=== PATIENT | female | born 1950 | race Caucasian/White ===

== ENCOUNTER 2024-05-20 09:29 | Emergency (ER) | payer MEDICARE, OTHER, SELFPAY ==
[2024-05-20 09:33] VITALS: BP 123/82
--- NOTE | 2024-05-20 10:28 | ED.GENMED ---
History of Present Illness
General
Chief Complaint: Nose Bleed
Time Seen by Provider: 05/20/24 09:48
History of Present Illness
History of Present Illness:
TIME OF INITIAL ENCOUNTER: 10 AM
HPI: The patient came in by ambulance due to severe nosebleed. However upon arrival here the nosebleed has stopped. She is on Xarelto for the past 10 years with a history of atrial fibrillation. She did not hold pressure on her nostrils earlier.
EXAM:
GENERAL: Well appearing in no distress
HEENT: Moist oral mucosa, there is some friable mucosa suggestive of recent bleeding to the anterior septum of the left nostril
NEUROLOGIC: Excellent strength all extremities, no obvious coordination deficits
PSYCHIATRIC: Appropriate mental status, normal insight and judgement
EXTREMITIES: Nontender, no edema, moves all extremities equally
SKIN: No rash, no lesions
NUMBER AND COMPLEXITY OF PROBLEMS ADDRESSED AT THE ENCOUNTER
� Chronic conditions affecting care: A-fib on Xarelto
� Acute Exacerbation and/or Progression of Chronic Illness: This is an acute problem
� Differential Diagnosis includes: Anterior nosebleed, posterior nosebleed
AMOUNT AND/OR COMPLEXITY OF DATA TO BE REVIEWED AND ANALYZED
� I performed an independent evaluation of and my interpretation is:
EKG:
CT:
X-rays:
Laboratory Studies:
Other:
� Review of other/old records: The patient was here in 2017 with palpitations
� Clinical information was obtained by an independent historian: None needed
� Prescriptions/Medications Considered but not given: I offered and considered Parvez-Synephrine and/or chemical cauterization with silver nitrate the patient declined both
� Further testing considered but not performed: None needed
RISK OF COMPLICATIONS AND/OR MORBIDITY OR MORTALITY OF PATIENT MANAGEMENT
� Social determinants of health affecting care: Lives at home
� Discussion with other providers: At patient's request, I did discuss with Dr. Peres
� Escalation of care including admission/observation vs risk of discharge considered: The patient's heart rate is around 108 and is irregular consistent with history of atrial fibrillation
ANY OTHER UPDATES:
10:30 AM: No further bleeding. I also emphasized importance of holding pressure to the nostrils when the nosebleed occurs. She has not held pressure on her nostrils prior to arrival.
Past History
Past History
ED Past Medical History: Other (Paroxysmal atrial fib, previous stroke with a lesion)
Social History
Tobacco: Non-smoker
Alcohol: None
Family History
Family History: Other (Dad with COPD)
Phy Exam
Physical Exam
Physical Exam:
See HPI
Course
Vital Signs
Initial and Last Documented VS:
Initial Vital Signs
Temp Pulse Resp BP Pulse Ox
98.2 F 126 18 123/82 99
05/20/24 09:33 05/20/24 09:33 05/20/24 09:33 05/20/24 09:33 05/20/24 09:33
Last Documented Vital Signs
Temp Pulse Resp BP Pulse Ox
98.2 F 126 18 123/82 99
05/20/24 09:33 05/20/24 09:33 05/20/24 09:33 05/20/24 09:33 05/20/24 09:33
*Critical Care Note
Total Time (30-74mins, 75-104mins- exclusive of procedures): Not Applicable
ED Attending Note
-
Portions of this chart may have been created with voice recognition software.� Occasional wrong word or��sound alike� substitutions may have occurred due to the inherent limitations of voice recognition software.
Discharge Plan
Departure
Patient Disposition: Home (Routine Discharge)
Date of Disposition: 05/20/24
Time of Disposition: 10:26
Patient with high blood pressure during this ER visit?: Yes
Discharge Problem:
Acute anterior epistaxis
Instructions: Nosebleeds (DC), BLOOD PRESSURE
Prescriptions:
No Action
metoprolol tartrate 12.5 MG tablet
12.5 mg PO BID
rivaroxaban [Xarelto] 20 MG tablet
20 mg PO QPM
clindamycin HCl [Cleocin HCl] 300 MG capsule
300 mg PO QID Qty: 28 0RF
Activity Restrictions/Additional Instructions:
I did speak to Dr. Peres. Continue Xarelto. We also recommend Vaseline/saline sprays. Return here if worse or other concerns. It is extremely important to hold the nostrils as I have shown your to help control bleeding if nosebleed recurs.
Interventions
Interventions:
*Risk Screen - Suicide Last Done: 05/20/24 09:33
*General Assessment Last Done: 05/20/24 09:33
*Neglect/Abuse Screening Last Done: 05/20/24 09:33
ED- Fall Risk Assessment Last Done: 05/20/24 09:52
*ED COVID-19 Vaccine History Last Done: 05/20/24 09:33
ED-EENT Assessment Last Done: 05/20/24 09:50
Discharge Date and Time
Print Language: CAMBODIAN
[2024-05-20 10:29] VITALS: BP 123/108
[2024-05-20 11:13] VITALS: BP 128/72
== END 2024-05-20 12:02 | disposition home or self-care (01) ==
LOC: EMR 09:29
PROVIDERS: EMERGENCY PHYSICIAN Emergency Medicine; FAMILY PHYSICIAN Family Medicine
DX: R04.0 Epistaxis (principal); I48.0 Paroxysmal atrial fibrillation; Z79.01 Long term (current) use of anticoagulants; Z86.73 Personal history of transient ischemic attack (TIA), and cerebral infarction without residual deficits
CPT/HCPCS: 99282